=== PATIENT | male | born 1955 | race African-American/Black ===

== ENCOUNTER 2018-06-22 00:24 | Emergency (ER) | payer BC ==
[2018-06-22 00:33] VITALS: BP 143/79; PULSE 84; TEMP 98.3; BMI 30.9
--- NOTE | 2018-06-22 00:38 | PDOC ---
History of Present Illness - General Chief Complaint: Allergic Reaction Stated Complaint: ALLERGIC REACTION Time Seen by Provider: 06/22/18 00:38 History Source: Patient - History of Present Illness Initial Comments: 06/22/18 00:41 CC: "my scalp hurts" 63 year old male with PMH GERD presented to ED for periorbital edema and scalp irritation since Wednesday. Pt stated he used a hair dye on Wednesday, developed scalp irritation and periorbital edema Wednesday. Pt stated he has not washed his hair since application. Pt has been taking Benadryl 50 mg BID and Danna daily for symptoms without relief. Pt denied fever, chills, vomiting, diarrhea, abdominal pain, shortness of breath, wheezing, chest tightness, chest pain, throat swelling, sore throat, or any other symptoms. PCP: Demario Shah Past History - Past Medical History Allergies/Adverse Reactions: Allergies Allergy/AdvReac Type Severity Reaction Status Date / Time No Known Allergies Allergy Verified 06/22/18 00:36 Home Medications: Ambulatory Orders predniSONE [Deltasone -] 40 mg PO DAILY #4 tablet 06/22/18 - Surgical History GI Surgery: Yes (colon resection 2002) - Suicide/Smoking/Psychosocial Hx Smoking Status: No Smoking History: Never smoked Have you smoked in the past 12 months: No Number of Cigarettes Smoked Daily: 0 Cigars Per Day: 1 Information on smoking cessation initiated: No Hx Alcohol Use: No Drug/Substance Use Hx: No Review of Systems - Review of Systems Able to Perform ROS?: Yes Comments:: 06/22/18 01:23 General: denied fever, chills, night sweats, generalized weakness. HEENT: denied sore throat, rhinorrhea, ear pain. Eye: admitted to periorbital edema. Heart: denied chest pain, palpitations, syncope, lower extremity swelling, diaphoresis. Respiratory: denied shortness of breath, cough, sputum production, hemoptysis. Abdomen: denied abdominal pain, nausea, vomiting, diarrhea, constipation, blood in stool. : denied dysuria, increased urinary frequency, hematuria, urinary incontinence , flank pain. Back: denied back pain. Musculoskeletal: denied joint pain, muscle pain, joint swelling. Neurological: denied headache, dizziness, numbness, tingling, weakness. Skin: admitted to scalp irritation. *Physical Exam - Vital Signs Last Vital Signs Temp Pulse Resp BP Pulse Ox 98.3 F 84 18 143/79 99 06/22/18 00:28 18 00:28 06/22/18 00:28 06/22/18 00:28 06/22/18 00:28 - Physical Exam Comments: 06/22/18 01:24 Constitutional: Well-nourished, Well-developed, appearing stated age. HEENT: head is normocephalic, atraumatic. EOMI. PERRLA. periorbital swelling bilaterally. Neck: supple. Full ROM. Heart: regular rhythm. no murmurs, rubs or gallops. Lungs: clear to auscultation bilaterally. no wheezing. no stridor. speaking full sentences. Abdomen: soft, nontender. normal bowel sounds. no rebound, guarding, masses. Extremities: Peripheral pulses intact. No lower extremity edema. Neurological: CN 2-12 grossly intact. Moves all four extremities. Psych: awake, alert, oriented x3. Follows commands. Answers questions appropriately. Skin: rash consistent with allergic reaction to scalp. no weals. no hives. Moderate Sedation - Procedure Monitoring Vital Signs: Procedure Monitoring Vital Signs Temperature 98.3 F 06/22/18 00:28 Pulse Rate 84 06/22/18 00:28 Respiratory Rate 18 06/22/18 00:28 Blood Pressure 143/79 06/22/18 00:28 O2 Sat by Pulse Oximetry (%) 99 06/22/18 00:28 Medical Decision Making - Medical Decision Making 06/22/18 01:25 63 year old male with above PMH presented to ED for allergic reaction to hair dye. Initial Vital Signs Temp Pulse Resp BP Pulse Ox 98.3 F 84 18 143/79 99 06/22/18 00:28 06/22/18 00:28 06/22/18 00:28 06/22/18 00:28 06/22/18 00:28 Afebrile. No tacycardia. No tachypnea. Mild hypertension. No hypoxia on room air. Pt appears well, no airway involvement, no GI involvement. Labs ordered: none Imaging ordered: none Medications ordered: benadryl 50 mg PO, Prednisone 50 mg 06/22/18 01:35 Pt was given benadryl, has refused to take it and has the pills at bedside. Pt stated he has benadryl at home. I stated that he was due for the next dose, as his last dosing was 1500 today. He stated he can take his pills at home. Pt given allergy referral and informed to follow up with PCP. Pt to be discharged with two day prednisone 40 mg prescription. Pt stated he feels comfortable going home. *DC/Admit/Observation/Transfer Diagnosis at time of Disposition: Allergic reaction - Discharge Dispostion Disposition: HOME Condition at time of disposition: Stable Decision to Admit order: No - Prescriptions Prescriptions: predniSONE [Deltasone -] 40 mg PO DAILY #4 tablet - Referrals Referrals: hSane Shah MD [Primary Care Provider] - Alan Parish MD [Staff Physician] - - Patient Instructions Printed Discharge Instructions: DI for Eye Allergic Reaction, DI for General Allergic Reactions Additional Instructions: You were seen today for an allergic reaction. Take Benadryl over the counter, take as advised on label. I have sent a prescription for a steroid to your pharmacy, take as advised on label. Follow up with your primary care doctor in 1 -2 days. I have given you a referral for an internal auditor, see them within 5 days if your symptoms have not resolved. Return to the Emergency Department for vomiting, shortness of breath, wheezing, swelling of your throat, feeling of gasping for air, abdominal pain or any other new, worsening or concerning symptoms. - Post Discharge Activity Forms/Work/School Notes: Back to Work
--- NOTE | 2018-06-22 00:42 | PDOC ---
Attending Attestation - Resident Resident Name: MillerBrandena - ED Attending Attestation I have performed the following: I have examined & evaluated the patient, The case was reviewed & discussed with the resident, I agree w/resident's findings & plan, Exceptions are as noted - HPI HPI: 06/22/18 00:40 63-year-old male who used hair dye on his hair on Wednesday and has had pruritus and itching and peeling of his scalp since then. He has not showered since dyeing his hair - Physicial Exam PE: 06/22/18 00:42 wnwd 63 yo male in no acute distress head -there is extensive peeling of his scalp and the forehead near his scalp eyes mild periorbital edema eyes eomi orophayrx uvula midline,no edema lungs cta b/l, no wheezing cvs [id number] abd nontender skin warm and dry neuro axox3,ambulatory - Medical Decision Making 06/22/18 01:40 pt has no wheezing,no difficulties swallowing or breathing,no hives,no wheals just localized skin reaction to hair dye pt instructed to wash his hair and take benadrly to the itching imp irritation/allergy to hair dye
[2018-06-22] MEDS ORDERED: predniSONE 20 MG TABLET (UD) PO ONE (00:44)
[2018-06-22] MEDS ORDERED: diphenhydrAMINE HCL 25 MG CAPSULE (FP) PO ONE ×2 (00:44→00:58)
[2018-06-22] MEDS ORDERED: predniSONE 20 MG TABLET (UD) ONE (00:58)
== END 2018-06-22 01:49 | disposition home or self-care (01) ==
LOC: JER 00:24
DX: T49.4X5A Adverse effect of keratolytics, keratoplastics, and other hair treatment drugs and preparations, initial encounter (principal); Y92.89 Other specified places as the place of occurrence of the external cause
CPT/HCPCS: 99281-25